=== PATIENT | male | born 1980 | race Caucasian/White ===

== ENCOUNTER 2017-02-05 07:19 | Emergency (ER) | payer SELFPAY ==
[2017-02-05] MEDS ORDERED: IBUP600T16 PO (07:39)
[2017-02-05] MEDS ORDERED: ONDANSETRON PF 4 MG/2 ML VIAL. IV ONE (08:00)
[2017-02-05] MEDS ORDERED: KETOROLAC 30 MG/ML VIAL. IV ONE (08:00)
[2017-02-05] MEDS ORDERED: IV NORMAL SALINE 1,000ML 1,000 ML IV ONE (08:00)
[2017-02-05 08:21] LABS: BASO # 0.2 x10^3/uL (0.0-0.2); BASO % 1 % (0-3); EOS # 0.4 x10^3/uL (0.0-0.7); EOS % 3 % (0-3); HEMOGLOBIN 14.8 g/dL (13.0-17.5); LYMPH # 2.5 x10^3/uL (1.0-4.8); LYMPH % 20 % (24-48); MEAN CORPUSCULAR HEMOGLOBIN 31 pg (25-35); MEAN CORPUSCULAR HGB CONC 35 g/dL (31-37); MEAN CORPUSCULAR VOLUME 89 fL (79-100); MONO % 8 % (0-9); NEUT # 8.1 x10^3uL (1.8-7.7); NEUT % 67 % (31-73); PLATELET COUNT 200 x10^3/uL (140-400); RED BLOOD COUNT 4.81 x10^6/uL (4.30-5.70); RED CELL DISTRIBUTION WIDTH 13.2 % (11.5-14.5)
[2017-02-05 08:33] LABS: ALBUMIN 4.6 g/dL (3.4-5.0); ALBUMIN/GLOBULIN RATIO 1.5 (1.0-1.7); CALCIUM 8.9 mg/dL (8.5-10.1); CREATININE 1.2 mg/dL (0.7-1.3); GFR 68.9; POTASSIUM 3.7 mmol/L (3.5-5.1); TOTAL BILIRUBIN 0.3 mg/dL (0.2-1.0); TOTAL PROTEIN 7.7 g/dL (6.4-8.2)
[2017-02-05 08:59] LABS: BACTERIA,URINE MOD /HPF (0-FEW); BILIRUBIN,URINE NEG (NEG); CLARITY,URINE CLOUDY; COLOR,URINE AMBER; GLUCOSE,URINE NEG (NEG); NITRITE,URINE NEG (NEG); RBC,URINE >40 /HPF (0-2); UROBILINOGEN,URINE 0.2 mg/dL (0.2 mg/dL)
[2017-02-05 09:01] LABS: SQUAMOUS EPITHELIAL CELL,UR FEW /LPF
[2017-02-05] MEDS ORDERED: ONDA4TAB10 SL (09:20)
[2017-02-05] MEDS ORDERED: TAMS0.4C97 PO (09:20)
[2017-02-05] MEDS ORDERED: CIPR500T PO (09:20)
[2017-02-05] MEDS ORDERED: HYDR-971 PO (09:20)
--- NOTE | 2017-02-05 09:20 | PHYS DOC ---
Adult General Chief Complaint Chief Complaint: FLANK PAIN HPI HPI Patient is a 36 year old male who presents with right sided flank pain. He has 3 day history of right flank pain radiating to right groin associated with nausea & hematuria/frequency. Denies fevers/chills, vomiting, diarrhea. History of "at least 18" previous kidney stones all passed spontaneously without intervention. He does not have a urologist. Review of Systems Review of Systems Constitutional: Denies fever or chills Eyes: Denies change in visual acuity HENT: Denies nasal congestion or sore throat Respiratory: Denies cough or shortness of breath Cardiovascular: Denies chest pain or edema GI: Reports abdominal pain, nausea, denies vomiting, or diarrhea : Reports hematuria Musculoskeletal: Reports flank pain Integument: Denies rash or skin lesions Neurologic: Denies headache, focal weakness or sensory changes Current Medications Current Medications Current Medications Medications (Trade) Dose Ordered Sig/Joseph Start Time Stop Time Status Last Admin Dose Admin Ketorolac Tromethamine (Toradol) 30 mg 1X ONCE 02/05/17 08:00 02/05/17 08:02 DC 02/05/17 08:29 30 MG Ondansetron HCl (Zofran) 4 mg 1X ONCE 02/05/17 08:00 02/05/17 08:02 DC 02/05/17 08:22 4 MG Sodium Chloride 1,000 ml @ 1,000 mls/hr 1X ONCE 02/05/17 08:00 02/05/17 08:59 DC 02/05/17 08:20 1,000 MLS/HR Allergies Allergies Allergies Coded Allergies Type Severity Reaction Last Updated Verified Fish Containing Products Allergy Unknown 02/05/17 Yes shellfish derived Allergy Unknown 02/05/17 Yes Uncoded Allergies Type Severity Reaction Last Updated Verified ivp dye Allergy Unknown 02/05/17 Physical Exam Physical Exam Constitutional: Well developed, well nourished, no acute distress, non-toxic appearance. HENT: Normocephalic, atraumatic, bilateral external ears normal, oropharynx moist, nose normal. Eyes: conjunctiva normal, no discharge. Neck: supple, no stridor. Cardiovascular: RRR, no murmurs, no edema. Lungs & Thorax: LCTAB, no wheezing, no respiratory distress. Abdomen: soft, diffuse right sided tenderness without rebound/guarding, no focal RUQ or RLQ tenderness, no masses or pulsatile masses, nondistended. Skin: Warm, dry, no erythema, no rash. Back: +right tenderness. Extremities: No tenderness, no edema. Neurologic: Alert and oriented X 3, no focal deficits noted. Psychologic: Affect normal, judgement normal, mood normal. Current Patient Data Vital Signs Vital Signs Date Time Temp Pulse Resp B/P (MAP) Pulse Ox O2 Delivery O2 Flow Rate FiO2 02/05/17 08:29 60 16 113/77 (89) 99 Room Air Lab Results Laboratory Tests Test 02/05/17 07:57 02/05/17 08:00 White Blood Count 12.0 x10^3/uL (4.0-11.0) H Red Blood Count 4.81 x10^6/uL (4.30-5.70) Hemoglobin 14.8 g/dL (13.0-17.5) Hematocrit 43.0 % (39.0-53.0) Mean Corpuscular Volume 89 fL (79-100) Mean Corpuscular Hemoglobin 31 pg (25-35) Mean Corpuscular Hemoglobin Concent 35 g/dL (31-37) Red Cell Distribution Width 13.2 % (11.5-14.5) Platelet Count 200 x10^3/uL (140-400) Neutrophils (%) (Auto) 67 % (31-73) Lymphocytes (%) (Auto) 20 % (24-48) L Monocytes (%) (Auto) 8 % (0-9) Eosinophils (%) (Auto) 3 % (0-3) Basophils (%) (Auto) 1 % (0-3) Neutrophils # (Auto) 8.1 x10^3uL (1.8-7.7) H Lymphocytes # (Auto) 2.5 x10^3/uL (1.0-4.8) Monocytes # (Auto) 1.0 x10^3/uL (0.0-1.1) Eosinophils # (Auto) 0.4 x10^3/uL (0.0-0.7) Basophils # (Auto) 0.2 x10^3/uL (0.0-0.2) Sodium Level 141 mmol/L (136-145) Potassium Level 3.7 mmol/L (3.5-5.1) Chloride Level 105 mmol/L (98-107) Carbon Dioxide Level 28 mmol/L (21-32) Anion Gap 8 (6-14) Blood Urea Nitrogen 13 mg/dL (8-26) Creatinine 1.2 mg/dL (0.7-1.3) Estimated GFR (Cockcroft-Gault) 68.9 BUN/Creatinine Ratio 11 (6-20) Glucose Level 92 mg/dL (70-99) Calcium Level 8.9 mg/dL (8.5-10.1) Total Bilirubin 0.3 mg/dL (0.2-1.0) Aspartate Amino Transferase (AST) 13 U/L (15-37) L Alanine Aminotransferase (ALT) 19 U/L (16-63) Alkaline Phosphatase 76 U/L (46-116) Total Protein 7.7 g/dL (6.4-8.2) Albumin 4.6 g/dL (3.4-5.0) Albumin/Globulin Ratio 1.5 (1.0-1.7) Urine Collection Type Void Urine Color [place] Urine Clarity Cloudy Urine pH 5.5 Urine Specific [place] >=1.030 Urine Protein 100 mg/dl (NEG-TRACE) Urine Glucose (UA) Neg mg/dL (NEG) Urine Ketones (Stick) Trace mg/dL (NEG) Urine Blood Large (NEG) Urine Nitrite Neg (NEG) Urine Bilirubin Neg (NEG) Urine Urobilinogen Dipstick 0.2 mg/dL (0.2 mg/dL) Urine Leukocyte Esterase Neg (NEG) Urine RBC >40 /HPF (0-2) Urine WBC 5-10 /HPF (0-4) Urine Squamous Epithelial Cells Few /LPF Urine Bacteria Mod /HPF (0-FEW) Urine Mucus Marked /LPF EKG EKG [] Radiology/Procedures Radiology/Procedures [] Course & Med Decision Making Course & Med Decision Making Pertinent Labs and Imaging studies reviewed. (See chart for details) The patient presents with flank pain & hematuria. Obtained labs which show normal renal function, UA shows blood as well as white blood cells & bacteria. Discussed risks/benefits of CT; he has had many in the past & has not changed management, so today will defer CT & treat symptoms. Gave IV fluids, zofran, pain medication, & He felt better. He requested discharge home. Recommend rest , hydration, prescribed cipro, flomax, norco, & zofran. No drinking alcohol or driving while taking norco. Follow up with a urologist within 1 week. Come back for high fever, severe pain, uncontrolled vomiting, any otherwise worsening condition. Return visit requiring admission will require transfer as no urology coverage; patient aware. Discharged home in stable condition. [] Dragon Disclaimer Dragon Disclaimer This chart was dictated in whole or in part using Voice Recognition software in a busy, high-work load, and often noisy Emergency Department environment. It may contain unintended and wholly unrecognized errors or omissions. Departure Departure: Impression: Primary Impression: Ureteral colic Additional Impression: Pyelonephritis Disposition: HOME, SELF-CARE Condition: IMPROVED Referrals: PCP,NO (PCP) Patient Instructions: Pyelonephritis, Adult, [id number], Ureteral Colic, Easy -to-Read Additional Instructions: You were seen in the emergency department today for kidney stones. You have blood in your urine as well as infection. The likely cause of your symptoms is a kidney stone. Due to your extensive radiation exposure in the past with previous CT scans, we didn't repeat this test today. Therefore we do not know size or location of the stone. Please rest, drink fluids, take antibiotic, use zofran for nausea & norco for pain, use flomax to promote passage of the stone. Follow up with a urologist within 1 week. Come back for high fever, severe pain, uncontrolled vomiting, any otherwise worsening condition. Discharged home in stable condition. Scripts Ondansetron (ZOFRAN ODT) 4 Mg Tab.rapdis 1 TAB SL Q8HRS, #10 TAB Prov: BRENT RIVAS MD 02/05/17 Hydrocodone Bit/Acetaminophen (NORCO 5-325 TABLET) 1 Each Tablet 1-2 TAB PO Q4-6HRS Y for SEVERE PAIN, #10 TAB Prov: BRENT RIVAS MD 02/05/17 Tamsulosin Hcl (FLOMAX) 0.4 Mg Cap.er.24h 0.4 MG PO DAILY for 7 Days, #7 CAP.SR Prov: BRENT RIVAS MD 02/05/17 Ciprofloxacin Hcl (CIPROFLOXACIN HCL) 500 Mg Tablet 1 TAB PO BID, #14 TAB Prov: BRENT RIVAS MD 02/05/17 Problem Qualifiers BRENT RIVAS MD Feb 05, 2017 09:20
[2017-02-05 10:05] VITALS: BP 132/71
== END 2017-02-05 10:05 | disposition home or self-care (01) ==
LOC: ER 07:19
DX: N12 Tubulo-interstitial nephritis, not specified as acute or chronic (principal); N23 Unspecified renal colic; Z87.442 Personal history of urinary calculi; Z91.041 Radiographic dye allergy status; Z91.013 Allergy to seafood
CPT/HCPCS: 36415; 80053; 81001; 85025; 87086; 96361; 96374; 96375; 99285; J1885; J2405; J7030

== ENCOUNTER 2018-06-04 23:46 | Emergency (ER) | payer SELFPAY ==
[~2018-06-04] VITALS: Ht 175.3 cm; Wt 75.7 kg
[~2018-06-04 23:46] MED LIST: CIPR500T PO; HYDR-3165 PO; IBUP600T16 PO; ONDA4TAB10 SL; TAMS0.4C97 PO
[2018-06-05] MEDS ORDERED: ORPHENADRINE CITRATE 60 MG/2 ML VIAL. ONE (00:05)
[2018-06-05] MEDS ORDERED: KETOROLAC 15 MG/ML VIAL. ONE (00:05)
[2018-06-05 00:12] LABS: BASO % 0 % (0-3); EOS # 0.2 x10^3/uL (0.0-0.7); EOS % 2 % (0-3); HEMATOCRIT 41.7 % (39.0-53.0); HEMOGLOBIN 13.9 g/dL (13.0-17.5); LYMPH # 1.3 x10^3/uL (1.0-4.8); LYMPH % 10 % (24-48); MEAN CORPUSCULAR HEMOGLOBIN 29 pg (25-35); MEAN CORPUSCULAR HGB CONC 33 g/dL (31-37); MEAN CORPUSCULAR VOLUME 88 fL (79-100); MONO # 0.3 x10^3/uL (0.0-1.1); MONO % 2 % (0-9); NEUT # 11.8 x10^3uL (1.8-7.7); NEUT % 87 % (31-73); PLATELET COUNT 238 x10^3/uL (140-400); RED BLOOD COUNT 4.76 x10^6/uL (4.30-5.70); RED CELL DISTRIBUTION WIDTH 13.7 % (11.5-14.5); WHITE BLOOD COUNT 13.6 x10^3/uL (4.0-11.0)
--- NOTE | 2018-06-05 00:22 | PHYS DOC ---
Past History Past Medical History: No Pertinent History Past Surgical History: No Surgical History Smoking: Cigarettes, Less than 1pk/day Additional Smoking Information: 05/21 PPD Alcohol Use: None Drug Use: None Adult General Chief Complaint Chief Complaint: MECHANICAL FALL HPI HPI Patient is a 37 yo male w/ PMH herniated lumbar disk who presents with complaint of pain in R lower back, sacrum following 6 foot fall from ladder onto R side that occurred around 2300. He was standing on the ladder and lifting sheetrock when he shifted his weight and the ladder fell. He remembers the events leading up to and after the accident. Patient reports he was able to stand and walk afterwards. He took 800mg ibuprofen following the accident but has not had any other medication since The pain continued to intensify so he had his drive him to ED. He reports he did not hit his head or lose consciousness, nor was he using ETOH. He reports this pain feels similar to the pain from his herniated disc but more intense. Patient reports he has been able to use restroom since accident and denies incontinence. Review of Systems Review of Systems Constitutional: Denies dizziness [] Eyes: Denies change in visual acuity : Denies dysuria or hematuria [] Musculoskeletal: Reports acute on chronic low back pain; denies neck pain Neurologic: Denies headache, focal weakness or sensory changes [] Complete systems were reviewed and found to be within normal limits, except as documented in this note. Current Medications Current Medications Current Medications Medications (Trade) Dose Ordered Sig/Joseph Start Time Stop Time Status Last Admin Dose Admin Fentanyl Citrate (Fentanyl 2ml Vial) 50 mcg 1X ONCE 06/05/18 00:15 06/05/18 00:16 UNV Ketorolac Tromethamine (Toradol 15mg Vial) 15 mg STK-MED ONCE 06/05/18 00:05 06/05/18 00:07 DC Orphenadrine Citrate (Norflex) 60 mg STK-MED ONCE 06/05/18 00:05 06/05/18 00:07 DC Sodium Chloride 1,000 ml @ 1,000 mls/hr 1X ONCE 06/05/18 00:30 06/05/18 01:29 Allergies Allergies Allergies Coded Allergies Type Severity Reaction Last Updated Verified Iodinated Contrast- Oral and IV Dye Allergy Intermediate 06/05/18 Yes Fish Containing Products Allergy Unknown 02/05/17 Yes shellfish derived Allergy Unknown 02/05/17 Yes Physical Exam Physical Exam Constitutional: Well developed, well nourished, uncomfortable in bed[] HENT: Normocephalic, atraumatic, oropharynx moist, nose normal. [] Eyes PERRL, EOMI, conjunctiva normal, no discharge. [] Neck: Normal range of motion, no tenderness, supple, no stridor. [] Cardiovascular: Heart rate regular rhythm, no murmur [] Lungs & Thorax: Bilateral breath sounds clear to auscultation [] Abdomen: Soft, no tenderness, pelvis stable and without pain Skin: Warm, dry, no erythema, no rash, no ecchymosis/discoloration/lesions on back or hips. [] Back: Midline tenderness in mid-sacral region. No palpable step off or deformities. [] Extremities: No tenderness, no cyanosis, no clubbing, ROM RLE limited 2/2 pain no edema. PT pulses 2/4 bl. Extremities warm, well perfused[] Neurologic: Alert and oriented X 3, normal motor function, normal sensory function, no focal deficits noted. Patellar reflexes 2/4 bilaterally. Dermatomes intact. [] Psychologic: Affect normal, judgement normal, mood normal. [] Current Patient Data Vital Signs Vital Signs Date Time Temp Pulse Resp B/P (MAP) Pulse Ox O2 Delivery O2 Flow Rate FiO2 06/04/18 23:49 97.5 120 22 100 Room Air EKG EKG [] Radiology/Procedures Radiology/Procedures R hip and pelvis: (Preliminary interpretation by ED physician): No acute fracture or dislocation Sacrum/coccyx (preliminary interpretation by ED physician): Possible nondisplaced coccyx fracture but limited visualization due to bowel gas Course & Med Decision Making Course & Med Decision Making Pt is 37 yo male who presents with complaint of low back and sacral pain following fall from ladder at 2300. Patient reports he was able to stand and walk after the accident. He denies using ETOH or drugs today. He took 800mg ibuprofen right after the accident however his pain has continued to increase. On physical exam he is tachycardic and uncomfortable laying in bed with particular midline tenderness in the sacral region. Neuro exam shows no FND. BL LE warm, well perfused. ROM lower extremity limited by pain. Imaging or sacrum, pelvis cannot r/o nondisplaced fracture of coccyx. Pain treated with fentanyl, toradol, norflex with moderate symptomatic relief. Ok to dc home. Patient prescribed percocet and orphenadrine for pain. Patient advised to use ice on wound for first 72h then introduce heat. Patient instructed to return if loss of control of bowel/bladder occurs or symptoms acutely worsens. Patient encouraged to follow up with PCP. K-TRACS performed with last controlled substance in Dec 2017 of Tramadol. Patient stable for discharge with outpatient follow-up with PCP. Discussed findings and plan with patient, who acknowledges understanding and agreement. [] Dragon Disclaimer Dragon Disclaimer This electronic medical record was generated, in whole or in part, using a voice recognition dictation system. Departure Departure: Impression: Primary Impression: Fall Additional Impression: Sacral contusion Disposition: HOME, SELF-CARE Condition: STABLE Referrals: PCP,NO (PCP) Patient Instructions: Contusion, [id number], Tailbone Injury, [id number] Additional Instructions: Please ice area 20 minutes on, then leave ice off for 20 minutes. Continue for the next few days. May introduce heat after 72h. You were given the following medication while in the Emergency Department: 1) Fentanyl 50mcg IVP x 1 dose 2) Ketoralac 15mg IVP x 1 dose 3) Norflex 60mg IVP x 1 dose 4) Percocet 5/325mg PO x 1 dose Scripts Orphenadrine Citrate (ORPHENADRINE CITRATE) 100 Mg Tablet.er 1 TAB PO BID PRN for MUSCLE PAIN, #14 TAB 0 Refills Prov: RICH CONNOR DO 06/05/18 Oxycodone Hcl/Acetaminophen (PERCOCET 5-325 MG TABLET ) 1 Each Tablet 1 TAB PO PRN Q6HRS PRN for PAIN, #10 TAB Prov: RICH CONNOR DO 06/05/18 Problem Qualifiers Primary Impression: Fall Encounter type: initial encounter Qualified Codes: W19.XXXA - Unspecified fall, initial encounter Additional Impression: Sacral contusion Encounter type: initial encounter Qualified Codes: S30.0XXA - Contusion of lower back and pelvis, initial encounter RICH CONNOR DO Jun 05, 2018 00:22
[2018-06-05 00:25] LABS: ALBUMIN 3.4 g/dL (3.4-5.0); ALBUMIN/GLOBULIN RATIO 0.9 (1.0-1.7); CALCIUM 8.5 mg/dL (8.5-10.1); CREATININE 1.1 mg/dL (0.7-1.3); GFR 75.7; MAGNESIUM 1.9 mg/dL (1.8-2.4); TOTAL BILIRUBIN 0.1 mg/dL (0.2-1.0); TOTAL PROTEIN 7.3 g/dL (6.4-8.2)
[2018-06-05 00:27] LABS: POTASSIUM 3.5 mmol/L (3.5-5.1)
[2018-06-05] MEDS ORDERED: ORPHENADRINE CITRATE 60 MG/2 ML VIAL. IV ONE (00:30)
[2018-06-05] MEDS ORDERED: IV NORMAL SALINE 1,000ML 1,000 ML IV ONE (00:30)
[2018-06-05] MEDS ORDERED: KETOROLAC 15 MG/ML VIAL. IV ONE (00:30)
[2018-06-05] MEDS ORDERED: oxyCODONE/APAP 5/325 1 TAB TABLET ONE (00:48)
[2018-06-05] MEDS ORDERED: OXYC1TAB15 PO (00:50)
[2018-06-05] MEDS ORDERED: ORPH-16 PO (00:50)
[2018-06-05 00:54] VITALS: BP 134/64
[2018-06-05] MEDS ORDERED: oxyCODONE/APAP 5/325 1 TAB TABLET PO ONE (01:00)
--- NOTE | 2018-06-05 08:13 | RAD ---
Pelvis with right hip, 3 views, 06/05/2018: HISTORY: Fall, injury No fracture or dislocation is identified. The hip joints are well-maintained. IMPRESSION: No acute bony abnormality is detected. Electronically signed by: Tc Pittman MD (06/05/2018 8:08 AM) [facility]
--- NOTE | 2018-06-05 08:14 | RAD ---
Sacrococcygeal spine, 3 views, 06/05/2018: HISTORY: Fall, pain No fracture is identified. The presacral soft tissues are unremarkable. IMPRESSION: No acute abnormality is detected. Electronically signed by: Tc Pittman MD (06/05/2018 8:09 AM) [facility]
== END 2018-06-05 01:19 | disposition home or self-care (01) ==
LOC: ER 23:46
DX: S30.0XXA Contusion of lower back and pelvis, initial encounter (principal); G89.29 Other chronic pain; F17.210 Nicotine dependence, cigarettes, uncomplicated; Z91.041 Radiographic dye allergy status; Z91.013 Allergy to seafood; W11.XXXA Fall on and from ladder, initial encounter; Y93.89 Activity, other specified; Y92.89 Other specified places as the place of occurrence of the external cause; Y99.8 Other external cause status
CPT/HCPCS: 36415; 72220; 73502; 80053; 83735; 85025; 96374; 96375; 99284; J1885; J2360; J3010; J7030